=== PATIENT | male | born 1960 | race Caucasian/White ===

== ENCOUNTER → 2019-04-21 | Outpatient (CLI) | payer OTHER ==
--- NOTE | 2019-04-21 10:46 | US ---
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 No pain. No prior surgeries. EXAM MEASUREMENTS: Liver Length: 14.5 cm Gallbladder Wall: 0.1 cm CBD: 0.5 cm Right Kidney: 10.2 x 5.0 x 5.8 cm Pancreas: Heterogeneous in appearance. Tail obscured by overlying bowel gas. Main pancreatic duct- 2.2 mm Liver: Appears slightly coarse Gallbladder: wnl Evidence for sonographic Salamanca's sign: neg CBD: wnl Right Kidney: wnl Visualized pancreas within normal limits. Visualized liver shows slight heterogeneity without mass or ductal dilatation. The surrounding ascites. Gallbladder seen without gallstones. IMPRESSION: No worrisome intrahepatic mass or intrahepatic ductal dilatation.
== END | disposition home or self-care (01) ==
LOC: RADUSWWP 10:10
PROVIDERS: ATTEND Internal Medicine Gastroenterology
DX: B18.2 Chronic viral hepatitis C (principal)
CPT/HCPCS: 76705

== ENCOUNTER → 2019-07-09 | Outpatient (CLI) | payer OTHER ==
[2019-07-09 12:28] LABS: Basophils % (A) 1 %; Eosinophils # (A) 0.4 k/uL (0-0.7); Eosinophils % (A) 7 %; HCT 46.2 % (39.0-53.0); Lymphocytes # (A) 1.4 k/uL (1.0-4.8); Lymphocytes % (A) 21 %; MCHC 32.4 g/dL (31.0-37.0); MCV 92.4 fL (80.0-100.0); Mean Platelet Volume 8.2; Monocytes # (A) 0.5 k/uL (0-1.0); Monocytes % (A) 8 %; Neutrophils # (A) 4.2 k/uL (1.3-7.7); Neutrophils % (A) 62 %; Platelet Count 214 k/uL (150-450); RDW 13.4 % (11.5-15.5); WBC 6.8 k/uL (3.8-10.6)
[2019-07-09 12:45] LABS: INR 0.9 (<1.2); Prothrombin Time 9.8 sec (9.0-12.0)
[2019-07-09 16:07] LABS: Albumin 4.4 g/dL (3.80-4.90); Albumin/Globulin Ratio 1.83 (1.60-3.17); Bilirubin, Conjugated 0.2 mg/dL (0.20-0.40); Bilirubin,Unconjugated 0.1 mg/dL; Globulin 2.4 g/dL (1.6-3.3); Total Bilirubin 0.3 mg/dL (0.3-1.2); Total Protein 6.8 g/dL (6.2-8.2)
[2019-07-13 16:34] LABS: HCV Qualitative Result DETECTED (Not detected); HCV Quant Log 5.93 (<1.08)
== END | disposition home or self-care (01) ==
LOC: LABWHC1 11:56
PROVIDERS: ATTEND Physician Assistant
DX: B18.2 Chronic viral hepatitis C (principal)
CPT/HCPCS: 36415; 80076; 81596; 85025; 85610; 87522; 87902

== ENCOUNTER 2023-05-22 11:40 | Day surgery (SDC) | payer MEDICARE, OTHER ==
[2023-05-21 09:19] VITALS: BMI 25.2
[~2023-05-22 11:40] MED LIST: ALPRAZolam 0.25 MG TAB PO PRN; ALPRAZolam 0.5 MG TAB PO PRN; ASPIRIN 325 MG TAB PO ONE; NITROGLYCERIN SL TABS 0.4 MG TAB SUBLINGUAL PRN
[2023-05-22] MEDS ORDERED: SODIUM CHLORIDE 0.9% 1,000 ML IV ONE ×2 (12:23→18:19)
[2023-05-22 12:43] LABS: Glucose,Whole Blood 102 mg/dL (70-110)
[2023-05-22 12:48] LABS: Basophils % (A) 1 %; Eosinophils # (A) 0.5 k/uL (0-0.7); Eosinophils % (A) 6 %; HCT 46.1 % (39.0-53.0); HGB 14.8 gm/dL (13.0-17.5); Hypochromasia Slight; Lymphocytes # (A) 1.2 k/uL (1.0-4.8); Lymphocytes % (A) 14 %; MCH 27.4 pg (25.0-35.0); MCHC 32.2 g/dL (31.0-37.0); Mean Platelet Volume 7.6; Monocytes # (A) 0.7 k/uL (0-1.0); Monocytes % (A) 9 %; Neutrophils # (A) 5.6 k/uL (1.3-7.7); Neutrophils % (A) 68 %; Platelet Count 297 k/uL (150-450); RBC 5.42 m/uL (4.30-5.90); RDW 14.5 % (11.5-15.5); WBC 8.2 k/uL (3.8-10.6)
[2023-05-22 13:02] LABS: African American GFR (CKD) >90 (>60 ml/min/1.73 sqM); Anion Gap 10 mmol/L; Blood Urea Nitrogen 25 mg/dL (9-20); Calcium 9.4 mg/dL (8.4-10.2); Carbon Dioxide 20 mmol/L (22-30); Chloride 106 mmol/L (98-107); Glucose 117 mg/dL (74-99); Non-African American GFR(CKD) >90 (>60 ml/min/1.73 sqM); Potassium 4.6 mmol/L (3.5-5.1); Sodium 136 mmol/L (137-145)
[2023-05-22 16:03] LABS: Glucose,Whole Blood 82 mg/dL (70-110)
[2023-05-22] MEDS ORDERED: LIDOCAINE 1% INJ 10MG/ML (20 ML MDV) ONE (17:19)
[2023-05-22] MEDS ORDERED: VERAPAMIL 2.5 MG/ML 2 ML AMP ONE ×2 (17:19→18:10)
[2023-05-22] MEDS ORDERED: fentaNYL (PF) 50 MCG/ML 2 ML AMP ONE (17:26)
[2023-05-22] MEDS: fentaNYL (PF) 50 MCG/ML 2 ML AMP IVP ONE ×2 (17:34→17:40)
[2023-05-22] MEDS ORDERED: LIDOCAINE 1% INJ 10MG/ML (20 ML MDV) SQ ONE (17:34)
[2023-05-22] MEDS ORDERED: VERAPAMIL SYRINGE (5 MG/10 ML) INTRAARTER ONE ×2 (17:35→18:15)
[2023-05-22] MEDS ORDERED: MIDAZOLAM 2 MG/2 ML VIAL IVP ONE (17:35)
[2023-05-22] MEDS: MIDAZOLAM 2 MG/2 ML VIAL IVP ONE ×2 (17:40→18:17)
[2023-05-22] MEDS ORDERED: HEPARIN SODIUM 1,000 UN/ML (10ML VL) ONE (17:48)
[2023-05-22] MEDS ORDERED: HEPARIN SODIUM 1,000 UN/ML (10ML VL) IVP ONE (18:15)
[2023-05-22] MEDS ORDERED: IOPAMIDOL-370 100ML BTL INJ ONE (18:20)
[2023-05-22 18:25] LABS: O2 Sat Blood Gas 69.9 %
[2023-05-22 18:26] LABS: O2 Sat Blood Gas 92.7 %
[2023-05-22 18:27] LABS: O2 Sat Blood Gas 69.6 %
[2023-05-22 19:13] VITALS: TEMP 98.2
[2023-05-22] MEDS: SODIUM CHLORIDE 0.9% 1,000 ML in EMPTY BAG 1 BAG IV SCH ×2 (19:52→19:53)
[2023-05-22 23:29] VITALS: BP 102/67; PULSE 76; RESP 17
--- NOTE | 2023-05-22 23:33 | P.CARDCATH ---
Description of Procedure: PROCEDURES PERFORMED: Left and right heart catheterization, bilateral coronary angiography, ultrasound guided arterial access INDICATION: Cardiomyopathy, previous NSTEMI CONSENT:I have discussed the risks, benefits and alternative therapies for the above-mentioned procedure and for both sedation/analgesia as well as necessary blood product administration, if indicated, as they pertain to this patient. The patient has indicated understanding and acceptance of the risks and procedures discussed. PROCEDURE: After the risks, benefits and alternatives of the above mentioned procedure explained in detail with the patient, informed consent was obtained. Patient was taken to the catheterization lab and prepped and draped in usual fashion. Ultrasound guidance was used to assess for arterial access. 1% lidocaine was used to anesthetize the right radial and brachial areas. A 6- [place] sheath was placed in the right radial artery and right brachial vein using modified Seldinger technique and ultrasound guidance. A 6 Fr [place] catheter was advanced into the RA, RV, PA and PCWP positions and pressure and oxygen saturations were obtained. Thermodilution was performed. Next a 6 Fr FR5 was advanced however not able to pass the mid brachial artery and angiography showed mid brachial artery 100% occlusion with collaterals however not able to traverse the collaterals. Therefore, left radial access was obtained and a 6Fr sheath was placed. Next left coronary angiography was performed with a 5-[place] JL 4.0 catheter and right coronary angiography was performed with a 5-[place] FR5 catheter in various views. A 5-[place] FR5 catheter was inserted into the left ventricle and pressure measurements were obtained. The right and left radial sheath was removed and a TR band was placed with hemostasis achieved. The patient tolerated the procedure well. Patient was transported back to the post catheterization holding area in stable condition. Conscious Sedation: Patient was monitored under the direct supervision of myself for conscious sedation using Versed and fentanyl for a total duration of 48 minutes HEMODYNAMICS: Ao: 140/72 LV: 141/4, LVEDP 16 PCWP: 14 PA: 35/11 RV: 35/4 RA: 5 Right radial artery oxygen saturation: 93% RA oxygen saturation: 70% PA oxygen saturation: 70% CO by FOSTER: 6.8 L/min CI by FOSTER: 2.99 L/min/m2 CO by thermodilution: 8.3 L/min CI by thermodilution: 3.6 L/min/m2 SELECTIVE CORONARY ARTERIOGRAPHY: LEFT MAIN: The left main is a large caliber vessel which bifurcates into the LAD and circumflex. There is 10-20% mid to distal calcified stenosis. LEFT ANTERIOR DESCENDING CORONARY ARTERY: LAD is a large caliber vessel which wraps around to the apex. There is a proximal 30% stenosis and a small caliber ostial diagonal 1 branch 90% stenosis. Mid LAD has a 30% stenosis and Diagonal 2 is small caliber and has a 70-80% stenosis. There are left to right colleterals to the RCA. LEFT CIRCUMFLEX CORONARY ARTERY: Left circumflex is a moderate caliber vessel which gives off small to moderate caliber OM1 and OM2 vessels. There are mild 20-30% stenoses of OM1 and OM2. RIGHT CORONARY ARTERY: The right coronary artery is a large caliber vessel which gives off a PDA and PLV branch and is the dominant vessel. There is 100% mid RCA stenosis FINAL IMPRESSION: 1. CAD as described above including 100% RCA, 30% LAD, 20-30% OM1 and OM2 stenoses. 2. Mildly elevated left sided filling pressures and normal right sided filling pressures 3. Normal CO/ CI PLAN: 1. Aggressive risk factor modification per most recent ACC/AHA guidelines. 2. [employer] of RCA with left to right collaterals and otherwise mild disease. Uptitrate medical therapy and treat F[employer] medically.
== END 2023-05-22 22:50 | disposition home or self-care (01) ==
LOC: CATHCVL 11:40 → 6NMEDSUR 18:22 → CATHCVL 22:50
PROVIDERS: ATTEND Internal Medicine
DX: I25.10 Atherosclerotic heart disease of native coronary artery without angina pectoris (principal); I21.4 Non-ST elevation (NSTEMI) myocardial infarction; I42.9 Cardiomyopathy, unspecified; I11.0 Hypertensive heart disease with heart failure; I50.22 Chronic systolic (congestive) heart failure; K75.9 Inflammatory liver disease, unspecified; E11.40 Type 2 diabetes mellitus with diabetic neuropathy, unspecified; Z79.01 Long term (current) use of anticoagulants; Z79.84 Long term (current) use of oral hypoglycemic drugs; Z79.899 Other long term (current) drug therapy
CPT/HCPCS: 93460; 76937; 80048; 85018; 82810; 85025; C1769 ×3; C1894; C1751; J2250; J2001; J3010; J1644; Q9967; 82805